=== PATIENT | female | born 1985 | race African-American/Black ===

== ENCOUNTER 2023-04-28 13:24 | Emergency (ER) | payer MEDICAID ==
[~2023-04-28] VITALS: Ht 157.5 cm; Wt 117.0 kg
[2023-04-28 13:39] VITALS: BP 130/96; PULSE 74; RESP 20; TEMP 98.9; O2SAT 100
[2023-04-28] MEDS ORDERED: ACETAMINOPHEN 325MG TABLET PO ONE (15:30)
== END 2023-04-28 17:54 | disposition home or self-care (01) ==
LOC: ER 13:24
DX: B34.9 Viral infection, unspecified (principal); J02.8 Acute pharyngitis due to other specified organisms; J45.909 Unspecified asthma, uncomplicated; I10 Essential (primary) hypertension; Z98.890 Other specified postprocedural states
CPT/HCPCS: 87070; 87430; 99283

== ENCOUNTER 2024-01-08 03:29 | Emergency (ER) | payer MEDICAID, OTHER ==
[~2024-01-08] VITALS: Ht 172.7 cm; Wt 74.0 kg
[2024-01-08] MEDS ORDERED: DIPHENHYDRAMINE 50MG/ML VIAL IM PRN (04:45)
[2024-01-08] MEDS: LORAZEPAM 2MG/ML INJ IM ONE (05:00)
[2024-01-08] MEDS: HALOPERIDOL LACTATE 5MG/ML VIAL IM ONE (05:00)
[2024-01-08] MEDS: DIPHENHYDRAMINE 50MG/ML VIAL IM PRN (05:01)
[2024-01-08 05:46] LABS: BASOPHILS % 0.9 % (0.0-2.0); EOSINOPHILS % 0.2 % (0.0-5.0); HEMATOCRIT. 43.5 % (36.0-48.0); HEMOGLOBIN. 14.4 g/dL (12.0-16.0); LYMPHOCYTES % 31.7 % (20.0-50.0); MEAN CORPUSCULAR HEMOGLOBIN 28.6 pg (28.0-32.0); MEAN CORPUSCULAR HGB CONC 33.1 g/dL (31.0-37.0); MEAN CORPUSCULAR VOLUME 86.3 fL (81.0-99.0); MONOCYTES % 8.2 % (2.0-8.0); RED BLOOD CELL COUNT 5.04 mill/uL (4.2-5.4); RED CELL DISTRIBUTION WIDTH 14.5 % (11.6-14.6)
[2024-01-08 06:00] LABS: ALANINE AMINOTRANSFERASE 28 IU/L (10-49); ASPARTATE AMINOTRANSFERASE 40 IU/L (<34); BILIRUBIN TOTAL 0.9 mg/dL (0.1-1.0); CALCIUM 9.5 mg/dL (8.7-10.4); CARBON DIOXIDE 20 mEq/L (21-32); CHLORIDE 99 mEq/L (98-107); CREATININE 1.1 mg/dL (0.6-1.0); GLUCOSE 148 mg/dL (70-105); PROTEIN TOTAL 8.7 g/dL (6.0-8.3); SODIUM 138 mEq/L (136-145); UREA NITROGEN BLOOD 10 mg/dL (9-23)
[2024-01-08 06:02] LABS: CLARITY URINE CLOUDY (CLEAR); COLOR URINE YELLOW (YELLOW); ETHANOL BLOOD < 10 mg/dL (<10); GLUCOSE URINE NEGATIVE (NEGATIVE); KETONES URINE TRACE (NEGATIVE); LEUKOCYTE ESTERASE URINE TRACE (NEGATIVE); NITRITE URINE NEGATIVE (NEGATIVE); OCCULT BLOOD URINE NEGATIVE (NEGATIVE); PH URINE 7.5 (4.5-8.0); PROTEIN URINE TRACE (NEGATIVE)
[2024-01-08 06:03] LABS: POTASSIUM 2.6 mEq/L (3.5-5.1)
[2024-01-08 06:11] LABS: *AMPHETAMINES SCREEN URINE NEGATIVE (NEGATIVE); *BARBITURATES SCREEN URINE NEGATIVE (NEGATIVE); *BENZODIAZEPINES SCREEN URINE NEGATIVE (NEGATIVE); *COCAINE SCREEN URINE NEGATIVE (NEGATIVE); CANNABINOID URINE SCREEN NEGATIVE (NEGATIVE); ECSTASY MDMA SCREEN URINE NEGATIVE (NEGATIVE); METHADONE URINE SCREEN Neg (NEGATIVE); OPIATES URINE SCREEN NEGATIVE (NEGATIVE); PHENCYCLIDINE URINE SCREEN NEGATIVE (NEGATIVE)
[2024-01-08 07:01] VITALS: O2SAT 98
[2024-01-08] MEDS: POTASSIUM CHLORIDE 20MEQ/PACKET PO ONE (07:10)
[2024-01-08 07:20] LABS: BACTERIA URINE TRACE; RBC URINE NONE SEEN /hpf (0-2); SQUAMOUS EPITHELIAL CELL URINE FEW /lpf (RARE/1+)
[2024-01-08 07:38] LABS: DIFFERENTIAL COMMENT 1
[2024-01-08 10:32] LABS: CARBON DIOXIDE 24 mEq/L (21-32); CHLORIDE 105 mEq/L (98-107); CREATININE 0.9 mg/dL (0.6-1.0); GLUCOSE 106 mg/dL (70-105); POTASSIUM 3.2 mEq/L (3.5-5.1); SODIUM 136 mEq/L (136-145); UREA NITROGEN BLOOD 8 mg/dL (9-23)
[2024-01-08 20:00] VITALS: BP 127/87; PULSE 100; RESP 18; TEMP 97.9
== END 2024-01-08 21:08 ==
LOC: ER 03:29
DX: R45.851 Suicidal ideations (principal); J45.909 Unspecified asthma, uncomplicated; I10 Essential (primary) hypertension; F19.90 Other psychoactive substance use, unspecified, uncomplicated; Z98.890 Other specified postprocedural states; Z20.822 Contact with and (suspected) exposure to COVID-19
CPT/HCPCS: 80053; 80305; 80048; 81003; 80320; 83735; 85025; 36415; 96372; 99285; 87426; J1200; J1630; J2060; Z7610; G0480